=== PATIENT | male | born 1980 | race Caucasian/White ===

== ENCOUNTER 2021-12-10 20:36 | Emergency (ER) | payer OTHER ==
[2021-12-10 20:40] VITALS: BP 128/84; PULSE 85; TEMP 98.6; BMI 26.6
[2021-12-10] MEDS ORDERED: DIPHTH,PERTUSS(ACELL),TET 0.5 ML DISP.SYRIN IM ONE ×2 (22:22→22:25)
== END 2021-12-10 23:22 | disposition home or self-care (01) ==
LOC: JERFT 20:36 → JER 20:36
PROC: 3E0234Z Introduction of Serum, Toxoid and Vaccine into Muscle, Percutaneous Approach (ICD-10-PCS; principal; 2021-12-10)
DX: S01.21XA Laceration without foreign body of nose, initial encounter (principal); W20.8XXA Other cause of strike by thrown, projected or falling object, initial encounter
CPT/HCPCS: 90471; 90715; 99284-25